=== PATIENT | male | born 1960 | race Caucasian/White ===

== ENCOUNTER 2022-06-27 14:19 | Outpatient (CLI) | payer OTHER, SELFPAY ==
--- NOTE | 2022-06-27 | DI.RAD_ITS ---
Exam(s) XR CERVICAL SPINE COMP 4-5V EXAM: XR CERVICAL SPINE COMP 4-5V CLINICAL HISTORY: SEGMENTAL AND SOMATIC DYSFUNCTION OF CERVICAL REGION, INJURY. TECHNIQUE: 2D digital imaging was performed. COMPARISON: No exams were available for comparison FINDINGS: BONES: No fracture or destructive lesion. DISKS: C2-3 disc space is maintained. There are facet degenerative changes. This C3-4 disc shows mi ld narrowing and small endplate osteophytes. Mild bilateral neural foraminal narrowing. The C 4 5 t hrough C6-7 disc spaces shows severe narrowing. There are endplate osteophytes. Facet degenerative changes are present as well, greater on the right side. There is multilevel bilateral neural foramin al narrowing. ALIGNMENT: Straightening of the normal cervical doses secondary to degenerative changes.. The odonto id and atlantoaxial articulations are normal. SOFT TISSUE: Normal. The lung apices are clear. IMPRESSION: Multilevel degenerative disc changes and facet degenerative changes causing bilateral neural foramina l narrowing. DATA REPOSITORY: RADIATION DOSE DELIVERED:
== END 2022-06-27 14:39 ==
PROVIDERS: Visit Provider Chiropractor
DX: M50.31 Other cervical disc degeneration, high cervical region (principal); M50.321 Other cervical disc degeneration at C4-C5 level; M50.322 Other cervical disc degeneration at C5-C6 level; M50.323 Other cervical disc degeneration at C6-C7 level; M47.812 Spondylosis without myelopathy or radiculopathy, cervical region; M99.01 Segmental and somatic dysfunction of cervical region
CPT/HCPCS: 72050

== ENCOUNTER 2024-01-04 04:57 | Observation (INO) | payer MEDICAID, SELFPAY ==
[2024-01-04] VITALS (57 sets, daily range): BP systolic 99–132; BP diastolic 67–111; PULSE 64–96; RESP 11–29; TEMP 36.1–37; O2SAT 91–97
--- NOTE | 2024-01-04 | ETT_ITS ---
APPROVED REPORT Exam: Exercise Treadmill Patient Location: In-Patient Room/Bed: 214 Stress Nurse: Blake Elliott RN and Suzan Wayne RN Ordering Provider:STEVIE JHA, Contact Number: [phone] BMI: 24.96 Baseline Rhythm: Sinus Rhythm. Indications: Chest Pain. Medical History Medical History: Coronary Artery Calcifications; Current Smoker. Cardiac Medications: Naproxen. Allergies: None. Cardiac Risk Factors: CVD; Current Smoker. Previous Cardiac Procedures: None. Pretest Chest Pain Characteristics: None. Exercise History: Indeterminate. Physical Disabilities: None. Lung Sounds: Clear bilaterally throughout, anterior and posterior. Heart Sounds: S1 and S2 auscultated. Stress Test Details Test: Exercise stress testing was performed using a Ubaldo protocol. Rest Stress HR Resting HR Supine: 67 bpm Max Heart Rate (APMHR): 159 bpm Resting HR Standin bpm Target HR (85% APMHR): 135 bpm Max HR Achieved: 138 bpm % of APMHR: 87 Recovery HR: 76 bpm HR response to stress: Normal HR response to stress. BP Resting BP Supine: 136/88 mmHg Resting BP Standin/84 mmHg Max BP: 205/82 mmHg Recovery BP: 122/72 mmHg BP response to stress: Normal blood pressure response to stress. ECG Resting ECG: Sinus Rhythm. Ectopy: None. Stress ECG: Sinus Tachycardia. ST Change: No significant ST segment changes noted. Arrhythmia: Occasional PAC's. Recovery ECG: Sinus Rhythm. Recovery ST Change: No significant ST segment changes noted. Recovery Arrhythmia: Occasional PAC's; Rare PVC. Clinical Reason for Termination: Target HR Achieved, Fatigue, Dyspnea. Stress Symptoms: Generalized Fatigue; Severe Shortness of Breath. Exercise duration: 02 min08 sec Highest Stage Reached: Stage 1: 1.7 mph at 10% grade. Exercise capacity: 4.64 METs Angina Score: None Rate Pressure Product: 05912 Stress ECG Conclusion 1. Resting electrocardiogram showed first-degree AV block 2. Patient exercised on the Ubaldo protocol completed a workload of 4.64 METS 3. Normal heart rate and blood pressure response to exercise. Patient achieved 87% of predicted hear t rate for age 4. There was no electrocardiographic evidence of myocardial ischemia 5. Atrial premature beats were noted Stress Test Summary STAGE Time (mins) Speed (mph) Grade (%) HR BP SpO2 SYMPTOMS METS Supine 67 136/88 96 Standing 76 124/84 1 3 1.7 10 138 Pt. c/o severe shortness of breath and fatigue. 4.5 1 min recovery 94 205/82 95 Pt. c/o moderate shortness of breath. 3 min recovery 67 150/70 Pt. c/o mild shortness of breath. 6 min recovery 76 122/72 96 Pt. states that all symptoms have resolved. Pt. was brought from the stress lab back up to Med/Surg following the ETT. Pt. was conversing pleasan tly with nursing staff in no apparent distress.
--- NOTE | 2024-01-04 04:45 | RT.EKG_ITS ---
APPROVED REPORT Exam: Resting ECG Reason for Exam: sob Patient Location: E HR:84 bpm ECG Measurements Heart Rate 84 AXIS DE 188 P 76 QRSd 100 QRS 92 QT 380 T 88 QTc 449 Conclusion Sinus rhythm...normal P axis, V-rate 60- 99 Right axis deviation...QRS axis ( 91,269) NSR Normal Interval Borderline Right [place] No ST changes.
--- NOTE | 2024-01-04 04:58 | W.ED.GENAD ---
Discharge Plan Discharge Details Chief Complaint: SOB/SuddenOnset Clinical Impression: Dyspnea, Chest tightness Primary Care Provider: Unknown,Unknown ED Provider: Romario Christina Moran Meds and New Rx's Prescriptions: No Action naproxen 500 MG tablet,delayed release (DR/EC) 500 mg PO BID Qty: 60 0RF HPI General Mode of arrival: ambulatory. Date/Time Provider Initiated Documentation: 01/04/24 04:58. Limitations to Documentation: no limitations. Information obtained by: patient. HPI Narrative: Patient presents to ED with complaint of shortness of breath. Patient states that he was fine when he went to bed last night. He has not been experiencing any fever, cough, URI symptoms, allergy symptoms. He is a smoker. He denies any other medical problems and does not take any home medications. Woke up about 3 AM with labored breathing and shortness of breath. Denies having chest pain but does admit to chest tightness. Denies any back pain. Denies any sweats, lightheadedness, nausea, vomiting, abdominal pain. Denies any leg pain or swelling. Has never happened previously. Related Data Home Medications Medication Instructions Recorded Confirmed naproxen 500 mg tablet,delayed 500 mg PO BID ##60 01/02/14 01/04/24 release Previous Rx's Medication Instructions Recorded naproxen 500 mg tablet,delayed 500 mg PO BID ##60 01/02/14 release Allergies Allergy/AdvReac Type Severity Reaction Status Date / Time No Known Allergies Allergy Unverified 01/04/24 05:17 Review of Systems Narrative: Per HPI Exam Narrative Exam Narrative: Const: WDWN male in NAD. VS per triage. HEENT: NC/AT. Normal facial exam. Neck: Supple. Trachea midline. Lungs: Increased work of breathing but not in distress, lungs are clear. Cor: RRR without murmur. Good radial pulses. GI: Soft/ND/NT. Neuro: A+O x 3. Normal speech, mentation, gait. Cranial nerves II - XII grossly intact. No gross motor or sensory deficit. Ext: No C/C/E. Medical Decision Making Patient presenting to ED after waking up with shortness of breath. This occurred about 2 hours ago and has been persistent. Complains of chest tightness but not pain. An EKG is sinus rhythm with borderline right axis no acute ST changes noted. He is a smoker but his saturations are good and his lungs are clear. He does have increased work of breathing. Besides age and smoking no apparent cardiac risk factors. Will give aspirin and nitro to see if any improvement. Laboratory studies ordered. Because of his acute onset as well as his work of breathing and borderline right axis I will obtain CTA to rule out PE. Patient's symptoms improved with 1 sublingual nitroglycerin. His chest tightness resolved and his shortness of breath improved. Currently does not have increased work of breathing. Initial laboratory workup is reassuring. His initial troponin is negative. CBC is normal. Kidney function normal. Magnesium a little low at 1.7. CTA of the chest is negative for dissection or PE. He does have coronary artery calcifications. Repeat troponin is due at 8 AM. If this is negative he needs stress testing prior to discharge and will likely need chest pain observation admission. I have discussed this with the patient who understands and is in agreement. Patient signed out to oncoming ED physician pending his 8 AM troponin result. Lab Data Lab results reviewed: Yes I reviewed the patient's lab results. Lab results narrative: see [facility] ECG Data Attestation: I personally reviewed and interpreted this ECG (s) as follows: Prior ECG tracings: not available for review Interpretation: see EKG/[facility] Critical Care Time Critical Care Time Critical Care Time: Yes Total Critical Care Time: 45 Attestation: Upon my evaluation, this patient had a high probability of imminent or life-threatening deterioration, which required my direct attention, intervention, and personal management. I have personally provided 45 minutes of critical care time exclusive of time spent on separately billable procedures. Time includes monitoring for potential decompensation, ordering of tests and medications, review of laboratory and radiology results, discussion with consultants and documentation . Interventions were performed as documented above in procedures. [facility] All Active Problems (Updated 01/04/24 @ 06:39 by Romario Christina MD) Chest tightness (Acute) Dyspnea (Acute) Medical History No significant past medical history Surgical History No significant past surgical history Social History Smoking/Tobacco Use Status: Current every day Tobacco Type: cigars Per week: 40 Tobacco: How many years used: 30 Smoking risk assessment performed?: Yes Alcohol Intake: never Drug use: Occasionally Substance use type: marijuana Housing: apartment Do you feel safe at home: Yes Do you feel safe in your relationship?: Yes
--- NOTE | 2024-01-04 05:00 | DI.CT_ITS ---
Exam(s) CT CHEST PE CTA EXAM: CT CHEST PE CTA CLINICAL HISTORY: CP/SOB. TECHNIQUE: Imaging Protocol: Axial CT angiography was performed with multi-slice acquisition and mu lti-planar and/or 3D reconstructions. CONTRAST MATERIAL: Intravenous: Omnipaque 350 contrast volume:100 mL COMPARISON: No exams were available for comparison FINDINGS: Tracheobronchial tree: Patent where visualized. Pulmonary parenchyma: No consolidation or dominant measurable mass. Moderately severe centrilobular e mphysematous changes are present. There is a 3 mm nodule adjacent to the right major fissure in the right middle lobe (series 7, image 414). Pulmonary Arteries: No evidence of filling defect to suggest pulmonary emboli. Mediastinum and Taylor: No dominant adenopathy or fluid collection. The esophagus is unremarkable. Visualized thyroid gland: Unremarkable. Pleura: No effusion or pneumothorax. Heart: The heart is not dilated. No coronary artery calcifications are seen. No pericardial effusion. Aorta: Thoracic aorta non-dilated. No evidence of dissection. Atherosclerotic calcification is presen t. Upper abdomen: There is a large left parapelvic cyst. No follow-up is recommended. Bilateral adren al nodularity is present which may represent adrenal adenomas. Follow-up as clinically appropriate. Soft tissues: Unremarkable. Bones: Within normal limits for the patient's age. IMPRESSION: 1. No evidence of pulmonary embolism, thoracic aortic dissection or aneurysm. 2. 3 mm right middle lobe pulmonary nodule. Solid nodules smaller than 6 mm do not require routine follow-up in all patients with high clinical r isk; however, some nodules smaller than 6 mm with suspicious morphology, upper lobe location, or both may warrant follow-up at 12 months (grade 2A; weak recommendation, high-quality evidence). (Eduardo et al., 2017) Single solid noncalcified nodules. ???Solid nodules smaller than 6 mm (those 5 mm or smaller) do not require routine follow-up in patients at low risk (grade 1C; strong recommendation, low- or very-low- quality evidence). (Eduardo et al., 2017) RADIATION DOSE DELIVERED: 330.49mGy.cm Total DLP DATA REPOSITORY: All CT scans at this facility are submitted to the National Radiology Data Registry (NRDR) Dose Index Registry (DIR) with the [employer] (ACR). RADIATION OPTIMIZATION: All CT scans at this facility use at least one of these dose optimization te chniques: automated exposure control; mA and/or kV adjustment per patient size (includes targeted exa ms where dose is matched to clinical indication); or iterative reconstruction.
[2024-01-04] MEDS: Aspirin 81 MG CHEW 324 MG CH (05:13)
[2024-01-04] MEDS: nitroGLYcerin 0.4 MG TAB SL (05:13)
[2024-01-04 05:16] LABS: Abs Immature Grans 0.04 10^3/uL (0.0-0.06); Absolute Basophil Count 0.13 10^3/uL (0.0-0.2); Absolute Eosinophil Count 0.43 10^3/uL (0.0-0.7); Absolute Monocyte Count 0.71 10^3/uL (0.1-0.8); Absolute Neutrophil Count 5.23 10^3/uL (1.2-6.7); Basophils % 1.4 %; Eosinophils % 4.5 %; HCT 47.9 % (40.0-50.0); HGB 16.4 g/dL (13.5-17.5); Immature Grans % 0.4 %; Lymphocytes % 31.4 %; MCH 30.8 pg (27.0-33.0); MCHC 34.2 % (32.0-36.0); MCV 90 fL (80-95); MPV 9.6 fL (8.0-11.0); Monocytes % 7.4 %; Neutrophils % 54.9 %; Platelet Count 288 10^3/uL (130-400); RBC 5.33 10^6/uL (4.36-5.78); RDW 13.4 % (11.8-14.1); RDW-SD 44.7 fL; WBC 9.54 10^3/uL (4.4-10.8)
[2024-01-04 05:34] LABS: ALT 18 U/L (16-63); AST 16 U/L (15-37); Albumin 4.1 g/dL (3.4-5.0); Alkaline Phosphatase 95 U/L (46-116); Anion Gap 11.6 mmol/L (3-11); BUN 18 mg/dL (7-18); Bilirubin, Total 0.42 mg/dL (0.2-1.0); CO2 26.4 mmol/L (21.0-32.0); Calcium 9.9 mg/dL (8.5-10.1); Chloride 104 mmol/L (98-107); Estimated GFR 85.63 (mL/min/1.73m2); Glucose 124 mg/dL (74-106); Magnesium 1.7 mg/dL (1.8-2.4); Potassium 4.1 mmol/L (3.5-5.1); Sodium 142 mmol/L (136-145); Troponin I < 50 ng/L (< or =60)
[2024-01-04 05:38] LABS: NT-proBNP 29 pg/mL (<300)
[2024-01-04] MEDS: Normal Saline - Diluent 50 ML VIAL IJ (05:42)
[2024-01-04] MEDS: Omnipaque 350 MG/ML 100 ML BTL IJ (05:42)
--- NOTE | 2024-01-04 06:15 | DI.VRAD_ITS ---
PROCEDURE INFORMATION: Exam: CTA Chest With Contrast Exam date and time: 01/04/2024 5:33 AM Age: 63 years old Clinical indication: Pain; Shortness of breath; Chest pressure; Additional info: Cp/sob TECHNIQUE: Imaging protocol: Computed tomographic angiography of the chest with contrast. Exam focused on the arteries. 3D rendering (Not supervised by radiologist): MIP and/or 3D reconstructed images were created by the technologist. Contrast material: OMNI 350; Contrast volume: 100 ml; Contrast route: INTRAVENOUS (IV); COMPARISON: No relevant prior studies are available for comparison. FINDINGS: Pulmonary arteries: No pulmonary embolus is appreciated. Aorta: No thoracic aortic aneurysm seen. Arterial calcifications. Lungs: Emphysematous changes in the lungs. Pleural spaces: No pleural effusion. Heart: No pericardial effusion. Coronary arteries: Coronary artery calcifications. Lymph nodes: Nonspecific mediastinal lymph nodes. Gallbladder and biliary ducts: Contracted gallbladder. Adrenal glands: Bilateral nodular adrenal thickening. Kidneys and ureters: Dilated left extrarenal pelvis, incompletely imaged. Bones/joints: No acute pertinent abnormality seen. Soft tissues: No acute pertinent abnormality seen. IMPRESSION: 1. No pulmonary embolus is appreciated. 2. Findings as above. Dictated and Authenticated by: Annie Arteaga MD. Ordering:ALEXIS Doss MD
[2024-01-04 08:30] LABS: Troponin I < 50 ng/L (< or =60)
--- NOTE | 2024-01-04 10:44 | NUR.NOTE ---
Nursing Note: arrived to floor alert and orientated, denies chest pain, states he never had chest pain just shortness of breath, denies shortness of breath at this time. State he did have an episode of anxiety in 2008 and is currently out on workers comp for rotator cuff injury to right shoulder and neck injury. hx of bilateral shoulder surgeries related to rotater cuff. see flow sheet for vitals
[2024-01-04 12:20] LABS: Troponin I < 50 ng/L (< or =60)
--- NOTE | 2024-01-04 14:27 | HPE_ITS ---
Date of service: 01/04/24 Time of Service: 09:00 Assessment and Plan Assessment and plan (1) Chest tightness: Status: Acute Assessment and plan: Resolved in ED No further chest tightness Troponin flat patient would like to go home, but will wait for stress test. Stress test pending (2) Tobacco abuse: Status: Acute Assessment and plan: Quit smoking Care mgrs to provide resources. History of Present Illness History of Present Illness Chief Complaint: Chest pain Narrative: * Chief Complaint: Patient presented to the ED with sudden onset of shortness of breath 2 hours prior to arrival, accompanied by chest tightness. * Symptoms: Persistent shortness of breath, chest tightness (no pain), increased work of breathing. * Initial Assessment: * EKG showed sinus rhythm with borderline right axis, no acute ST changes. * Good oxygen saturations, clear lungs. * Risk Factors: Age, smoking (no other apparent cardiac risk factors). * Management: * Administered aspirin and nitroglycerin; symptoms improved with nitroglycerin. * Improvement: Chest tightness resolved, shortness of breath improved, no increased work of breathing. * Laboratory Findings: * Initial troponin negative. Second negative, third pending * CBC normal. * Normal kidney function. * Low magnesium (1.7). * Imaging: CTA negative for dissection or pulmonary embolism. Emphysematous changes in the lungs. * Cardiovascular Findings: Coronary artery calcifications noted. Placed on observation status on the medical floor for further testing and treatement Review of Systems All systems reviewed & are unremarkable except as noted in HPI and below PFSH All Active Problems (Updated 01/04/24 @ 19:25 by Alyssa Alexis NP) Tobacco abuse (Acute) Chest tightness (Acute) Dyspnea (Acute) Medical History No significant past medical history Surgical History No significant past surgical history Social History Smoking/Tobacco Use Status: Current every day Tobacco Type: cigars Per week: 40 Tobacco: How many years used: 30 Smoking risk assessment performed?: Yes Alcohol Intake: never Drug use: Occasionally Substance use type: marijuana Housing: apartment Do you feel safe at home: Yes Do you feel safe in your relationship?: Yes Meds Allergies and Home Medications Allergies Allergy/AdvReac Type Severity Reaction Status Date / Time No Known Allergies Allergy Unverified 01/04/24 05:17 Home Medications Medication Instructions Recorded Confirmed Type naproxen 500 mg tablet,delayed 500 mg PO BID ##60 01/02/14 01/04/24 Rx release Exam Narrative Exam Narrative: Const: Awake, alert, pleasant HEENT: NC/AT. Normal facial exam. Neck: Supple. Trachea midline. Lungs: No increased work of breathing, lungs are clear. Cor: RRR without murmur. Good radial pulses. GI: Soft/ND/NT. Neuro: A+O x 3. Normal speech, mentation, gait. Cranial nerves II - XII grossly intact. No gross motor or sensory deficit. Ext: No C/C/E. Results Labs 01/04/24 05:00 01/04/24 05:00 Labs: Laboratory Results - last 24 hr 01/04/24 01/04/24 01/04/24 05:00 08:07 11:50 WBC 9.54 RBC 5.33 Hgb 16.4 Hct 47.9 MCV 90 MCH 30.8 MCHC 34.2 RDW 13.4 Plt Count 288 MPV 9.6 Immature Gran % 0.4 Neutrophils % 54.9 Lymphocytes % 31.4 Monocytes % 7.4 Eosinophils % 4.5 Basophils % 1.4 Nucleated RBC % 0.0 Absolute Neutrophils 5.23 Absolute Lymphocytes 3.00 Absolute Monocytes 0.71 Absolute Eosinophils 0.43 Absolute Basophils 0.13 Sodium 142 Potassium 4.1 Chloride 104 Carbon Dioxide 26.4 Anion Gap 11.6 H BUN 18 Creatinine 1.0 Est GFR (CKD-EPI 2020) 85.63 Glucose 124 H Calcium 9.9 Magnesium 1.7 L Total Bilirubin 0.42 AST 16 ALT 18 Alkaline Phosphatase 95 Troponin I < 50 < 50 < 50 NT-Pro-B Natriuret Pep 29 Total Protein 8.0 Albumin 4.1 Last Vital Signs Temp 36.6 C 01/04/24 10:48 Pulse 70 01/04/24 10:48 Resp 20 01/04/24 10:48 BP 117/78 01/04/24 10:48 Pulse Ox 97 01/04/24 10:48 Time Spent Time spent with Patient: 40-54 minutes Time was spent: preparing to see the patient(eg.review tests), ordering medications,tests, procedures, referring, communicating with other health rn long term care, indepentently interpreting results, counseling the patient and care coordination
[2024-01-04] MEDS: Magnesium Chloride 64 MG TABCR PO (14:30)
--- NOTE | 2024-01-04 16:02 | DSE_ITS ---
Date of service: 01/04/24 Time of Service: 16:02 DS: Diagnosis Discharge Diagnosis (1) Chest tightness: Status: Acute Discharge Plan Disposition Patient Disposition: Home Condition: Improving Discharge Details Reason For Visit: chest pain Admit Date/Time: 01/04/24 09:23 Admit Provider: Konrad Lomeli Attending Provider: Konrad Lomeli Primary Care Provider: Unknown,Unknown Hospital Course Hospital Course: * Chief Complaint: Patient presented to the ED with sudden onset of shortness of breath 2 hours prior to arrival, accompanied by chest tightness. * Symptoms: Persistent shortness of breath, chest tightness (no pain), increased work of breathing. * Initial Assessment: * EKG showed sinus rhythm with borderline right axis, no acute ST changes. * Good oxygen saturations, clear lungs. * Risk Factors: Age, smoking (no other apparent cardiac risk factors). * Management: * Administered aspirin and nitroglycerin; symptoms improved with nitroglycerin. * Improvement: Chest tightness resolved, shortness of breath improved, no increased work of breathing. * Laboratory Findings: * Initial troponin negative. Second negative, third pending * CBC normal. * Normal kidney function. * Low magnesium (1.7). * Imaging: CTA negative for dissection or pulmonary embolism. Emphysematous changes in the lungs. * Cardiovascular Findings: Coronary artery calcifications noted. Stress test negative for ishemia Home Meds and New Rx's Prescriptions: No Action naproxen 500 MG tablet,delayed release (DR/EC) 500 mg PO BID Qty: 60 0RF Discharge Instructions Instructions: Quitting smoking, Chest pain - Discharge instructions Additional Instructions: Follow up with your PCP Your stress test did not show any ischemia STOP smoking Stand Alone Forms: Nursing Discharge Form Referrals: Darryn Whitlock DO [OSTEOPATHIC DOCTOR] - 01/12/24 10:00 am (1-2 weeks post hospitalization for chest pain) Activity:: Activity as Tolerated Equipment/Supplies:: No Equipment Needed Diet:: As Tolerated Discharge Orders Discharge Orders: Discharge Order (Routine); Ordered 01/04/24 Ordered By: Alyssa Alexis Discharge Data Discharge Date/Time-TO BE ENTERED AT DEPARTURE: 01/04/24 16:47 DS: Summary Time Spent with Patient providing and/or coordinating discharge services: Less than 30 minutes Status at Discharge Functional status at discharge: independent ambulation Overall status at discharge: patient is back to baseline Mental Status: mental status grossly normal Speech and Movement: speech and movement normal Mood: congruent mood Affect: normal affect Quality:SDOH Health Related Social Needs: No Data to Display Exam Psych Mental Status: mental status grossly normal Speech and Movement: speech and movement normal Mood: congruent mood Affect: normal affect DS: Data Vitals/I&O Vitals and I&O: Vital Signs Temperature 37 C 01/04/24 15:36 Temperature Source Tympanic 01/04/24 15:36 Pulse 77 01/04/24 15:36 Pulse Rhythm Regular 01/04/24 12:18 Pulse 76 01/04/24 10:10 Respiratory Rate 17 01/04/24 15:36 Respiratory Effort Normal 01/04/24 12:18 Respiratory Depth Normal 01/04/24 12:18 Respiratory Pattern Normal 01/04/24 12:18 Blood Pressure 127/83 01/04/24 15:36 Blood Pressure Mean 87 01/04/24 10:01 Blood Pressure Position Sitting 01/04/24 08:23 Pulse Oximetry 95 01/04/24 15:36 Oxygen Delivery Method Room Air 01/04/24 15:36 Oxygen Flow Rate 0 01/04/24 15:36 Pain Level 0 01/04/24 12:18 Comment see flow sheet 01/04/24 12:18 Intake & Output 01/03/24 01/04/24 01/04/24 23:59 11:59 23:59 Weight 79.3 kg 81.647 kg Other: Voiding Methods Toilet Data Completed and Pending Labs on day of discharge: Labs from last 24 hours 01/04/24 01/04/24 01/04/24 11:50 08:07 05:00 WBC 9.54 RBC 5.33 Hgb 16.4 Hct 47.9 MCV 90 MCH 30.8 MCHC 34.2 RDW 13.4 Plt Count 288 MPV 9.6 Immature Gran % 0.4 Neutrophils % 54.9 Lymphocytes % 31.4 Monocytes % 7.4 Eosinophils % 4.5 Basophils % 1.4 Nucleated RBC % 0.0 Absolute Neutrophils 5.23 Absolute Lymphocytes 3.00 Absolute Monocytes 0.71 Absolute Eosinophils 0.43 Absolute Basophils 0.13 Sodium 142 Potassium 4.1 Chloride 104 Carbon Dioxide 26.4 Anion Gap 11.6 H BUN 18 Creatinine 1.0 Est GFR (CKD-EPI 2020) 85.63 Glucose 124 H Calcium 9.9 Magnesium 1.7 L Total Bilirubin 0.42 AST 16 ALT 18 Alkaline Phosphatase 95 Troponin I < 50 < 50 < 50 NT-Pro-B Natriuret Pep 29 Total Protein 8.0 Albumin 4.1 PFSH All Active Problems (Updated 01/04/24 @ 19:25 by Alyssa Alexis NP) Tobacco abuse (Acute) Chest tightness (Acute) Dyspnea (Acute) Medical History No significant past medical history Surgical History No significant past surgical history Social History Smoking/Tobacco Use Status: Current every day Tobacco Type: cigars Per week: 40 Tobacco: How many years used: 30 Smoking risk assessment performed?: Yes Alcohol Intake: never Drug use: Occasionally Substance use type: marijuana Housing: apartment Do you feel safe at home: Yes Do you feel safe in your relationship?: Yes Time Spent with Patient Time Spent with Patient: 45-69 minutes Time was spent: preparing to see the patient(eg.review tests), ordering medications,tests, procedures, referring, communicating with other health care coordinator, indepentently interpreting results, counseling the patient and care coordination
== END 2024-01-04 16:47 | disposition home or self-care (01) | DRG 313 ==
LOC: ER 08:27 → MS 14:21
PROVIDERS: Emergency Medicine; Nurse Practitioner Family; Admitting Provider Family Medicine; Emergency Provider Student in an Organized Health Care Education/Training Program; Visit Provider Family Medicine
DX: R07.89 Other chest pain (principal); F17.210 Nicotine dependence, cigarettes, uncomplicated; R06.02 Shortness of breath
CPT/HCPCS: 00123; 36415; 71275; 80053; 93005; 99291; 83735; 83880; 84484; 85025; 93010; 93017; 99234; G0378; J3490

== ENCOUNTER 2025-03-28 09:32 | Emergency (ER) | payer MEDICAID, SELFPAY ==
[2025-03-28 09:44] VITALS: BP 147/91; PULSE 91; RESP 20; TEMP 36.3; O2SAT 96
--- NOTE | 2025-03-28 10:00 | DI.CT_ITS ---
Exam(s) CT CHEST PE ABD PELVIS W EXAM: CT CHEST PE ABD PELVIS W CLINICAL HISTORY: Hemoptysis, tender umbilical hernia, abdominal zain. TECHNIQUE: Imaging Protocol: Axial CT angiography was performed with multi- slice acquisition and multi-planar and/or 3D reconstructions. Computer aided detection (CAD) was utilized. CONTRAST MATERIAL: Intravenous: Omnipaque 350contrast volume:100 mL COMPARISON: CT CT CHEST PE CTA from 01/04/2024 FINDINGS: The lung apices were not included on this examination. CHEST: Tracheobronchial tree: Patent where visualized. No evidence of bronchiectasis. Pulmonary parenchyma: No consolidation or dominant measurable mass. Moderate emphysematous changes are present in the lungs. Pulmonary Arteries: No evidence of filling defect to suggest pulmonary emboli. Mediastinum and Taylor: No dominant adenopathy or fluid collection. The esophagus is unremarkable. Visualized thyroid gland: Unremarkable. Pleura: No effusion or pneumothorax. Heart: The heart is not dilated. Mild coronary artery calcification is present. No pericardial effusion. Aorta: Thoracic aorta non-dilated. Atherosclerotic calcification is present. Bones: Within normal limits for the patient's age. Soft tissues: Mild gynecomastia. ABDOMEN: Liver: Normal density. No measurable mass. Portal, Superior Mesenteric, and Splenic Veins: Unremarkable. Gallbladder and Biliary Tract: No radiodense calculus or dilation. Pancreas: Normal density, no abnormal calcifications or inflammatory process. Spleen: Normal. Adrenals: There is stable bilateral adrenal nodules likely reflecting adenomas. 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 There are left renal calculi. There is delayed enhancement of the left kidney. There is dilatation of the left renal pelvis. The left ureter is of normal caliber. The findings are suspicious for obstruction at the UPJ. No masses seen. Abdominal Aorta: Abdominal portion non-dilated. Atherosclerotic calcification is present. Bowel: There is diverticulosis of the colon without evidence of acute diverticulitis. There is no bowel obstruction or wall thickening. The stomach is incompletely distended limiting evaluation. Appendix is unremarkable. Peritoneal Cavity: No ascites, collection or mesenteric inflammatory response. No free air. Lymph Nodes: Within normal limits. Bones: Within normal limits for the patient's age. Soft Tissues: There is a fat containing umbilical hernia. PELVIS: Bladder: Symmetric distention, no gross wall thickening. Reproductive Organs: Unremarkable as visualized. Lymph Nodes: Within normal limits. Bones: Within normal limits. IMPRESSION: 1. Dilatation of the left renal collecting system to the level of the UPJ without obvious obstructing cause. UPJ obstruction or mass should be considered. Urology consult is recommended. 2. Left nephrolithiasis. 3. No evidence of a pulmonary embolism or thoracic aortic aneurysm. 4. No acute pulmonary process. RADIATION DOSE DELIVERED: 303.86mGy.cm Total DLP DATA REPOSITORY: All CT scans at this facility are submitted to the National Radiology Data Registry (NRDR) Dose Index Registry (DIR) with the [employer] (ACR). RADIATION OPTIMIZATION: All CT scans at this facility use at least one of these dose optimization techniques: automated exposure control; mA and/or kV adjustment per patient size (includes targeted exams where dose is matched to clinical indication); or iterative reconstruction.
[2025-03-28 10:26] LABS: Abs Immature Grans 0.02 10^3/uL (0.0-0.06); HCT 45.6 % (40.0-50.0); HGB 15.6 g/dL (13.5-17.5); Immature Grans % 0.3 %; MCH 30.2 pg (27.0-33.0); MCHC 34.2 % (32.0-36.0); MCV 88 fL (80-95); MPV 10.2 fL (8.0-11.0); Platelet Count 280 10^3/uL (130-400); RBC 5.16 10^6/uL (4.36-5.78); RDW 13.4 % (11.8-14.1); RDW-SD 43.8 fL; WBC 7.33 10^3/uL (4.4-10.8)
[2025-03-28] MEDS: Normal Saline 1,000 ML 1000 ML IV (10:30)
[2025-03-28] MEDS: Ketorolac 15 MG/ML VIAL IVP (10:32)
[2025-03-28] MEDS: ACETAMINOPHEN 1,000 MG/100 ML BAG 400 MG IVPB (10:33)
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
[2025-03-28 10:46] LABS: ALT 18 U/L (16-63); AST 35 U/L (15-37); Albumin 4.1 g/dL (3.4-5.0); Alkaline Phosphatase 102 U/L (46-116); Anion Gap 11.1 mmol/L (3-11); BUN 18 mg/dL (7-18); Bilirubin, Total 0.4 mg/dL (0.2-1.0); CO2 22.9 mmol/L (21.0-32.0); Calcium 10.1 mg/dL (8.5-10.1); Chloride 105 mmol/L (98-107); Estimated GFR 100.06 (mL/min/1.73m2); Glucose 110 mg/dL (74-106); Lipase 25 U/L (<78); Potassium 4.2 mmol/L (3.5-5.1); Sodium 139 mmol/L (136-145); Total Protein 7.9 g/dL (6.4-8.2)
[2025-03-28 11:00] LABS: Glucose Negative (Negative)
[2025-03-28] MEDS: Omnipaque 350 MG/ML 500 ML BTL-Imaging package IJ (11:34)
[2025-03-28] MEDS: Normal Saline - Diluent 50 ML VIAL IJ (11:36)
[2025-03-28] MEDS: Ondansetron 4 MG/2 ML VIAL (11:39)
[2025-03-28 13:55] VITALS: BP 141/81; PULSE 65; RESP 16; TEMP 36.7; O2SAT 99
== END 2025-03-28 13:58 | disposition home or self-care (01) ==
PROVIDERS: Emergency Provider Student in an Organized Health Care Education/Training Program
DX: K42.9 Umbilical hernia without obstruction or gangrene (principal); N13.9 Obstructive and reflux uropathy, unspecified
CPT/HCPCS: 36415; 71275; 74177; 80053; 83690; 96361; 96365; 96375; 99285; 81003; 83605; 85025; 99284; J0131; J1885; J2405

== ENCOUNTER 2025-04-16 02:01 | Outpatient (CLI) | payer MEDICAID, SELFPAY ==
--- NOTE | 2025-04-16 05:45 | DI.NM_ITS ---
Exam(s) NM MAG 3 RENOGRAM W LASIX CLINICAL HISTORY: check function,upj obstruction,n13.5. COMPARISON: CT CT CHEST PE CTA from 01/04/[address] CHEST PE ABD PELVIS W from 03/28/2025 EXAMINATION: Dose: 9.4 mCi Tc-99m MAG3 Images: Immediately for 1 minute followed by dynamic for 45 minutes. Thirty- ninemg Lasix was administered after peak uptake in the renal cortex at approximately 12 min. FINDINGS: Sequential imaging and time activity curves were generated following IV injection of 9.4 millicurie technetium 99 Mag 3. 39 milligram Lasix/furosemide was administered 12 minutes after injection of radiopharmaceutical. FINDINGS: Split renal function favors the left kidney with 59.5 percent uptake in the left kidney and 40.5 percent uptake in the right kidney. Time activity curves: There is no evidence of obstruction pattern on the right side. There is continuous increasing uptake on the left side. This does not diminished following IV Lasix injection. This implies significant obstruction pattern. IMPRESSION: 1. Findings are consistent with obstruction of the left renal collecting system.
[2025-04-16] MEDS: Furosemide 40 MG/4 ML VIAL IVP (09:18)
== END 2025-04-16 02:21 ==
LOC: DI 02:02
PROVIDERS: Visit Provider Urology
DX: N13.5 Crossing vessel and stricture of ureter without hydronephrosis (principal)
CPT/HCPCS: 78708; A9540; J1938

== ENCOUNTER 2025-05-13 10:47 | Day surgery (SDC) | payer MEDICAID, SELFPAY ==
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
--- NOTE | 2025-05-12 14:42 | PDOC.DSDIS_ITS ---
Date of service: 05/13/25 Discharge Plan Disposition Patient Disposition: Home Condition: Good Discharge Details Reason For Visit: umbilical hernia repair Attending Provider: Aram Chambers Primary Care Provider: None,None Home Meds and New Rx's Prescriptions: New tramadol 50 mg tablet 50 mg PO Q8H PRNQty: 9 0RF Rx Instructions: Take 1 tablet by mouth up to every 8 hours if needed for severe pain. Continued umeclidinium-vilanterol [Anoro Ellipta] 62.5-25 mcg/actuation blister with device 1 inh inhalation DAILY Qty: 14 3RF albuterol sulfate [Ventolin HFA] 90 mcg/actuation HFA aerosol inhaler 2 puff inhalation Q6H PRN (Reason: shortness of breath or wheezing) Qty: 6.7 3RF Rx Instructions: use with spacer naproxen sodium [Aleve] 220 mg capsule 220 mg PO BID PRN acetaminophen [Tylenol Extra Strength] 500 mg tablet 500 mg PO ONCE Patient Comments: 1000 mg dose Discharge Instructions Instructions: Abdominal Hernia Repair, Laparoscopic Surgery Additional Instructions: Romario was good seeing you today, and I hope you make a quick and uneventful recovery as you transition home. Things went very smoothly. We are able to reduce the fat from the hernia just as we discussed beforehand, close the defect, and reinforce this with the mesh from below. Expect to get some bru ising over the incisions, and around your bellybutton over the next few days. That is extremely common and nothing to worry about. Ice packs over the incisions and around your bellybutton will help with postoperative pain and swelling. I usually recommend that patients alternate Tylenol and ibuprofen in addition to the prescription medication if you need that. You should be up and walking around a little bit later today and tomorrow. Basic light exercises totally fine. Keep your lifting less than about 10 pounds, and be careful with coughing and sneezing. Obviously, if you can hold off from cigarette smoking that would be in your best interest in the long run. As you will see, you have 3 bandages over your abdomen. 1 is around her bellybutton, and the other 2 are towards the left side. Beginning tomorrow, the fifth, you can remove the bandages on the left side of your abdomen. Please leave the 1 on your bellybutton in place. You can wash all of these incisions with warm soapy water and pat dry. You are welcome to replace the bandages over these incisions if you find that most comfortable. Alternatively, they can be left open to the air. On Monday, the , you can remove the bandage from your bellybutton. You will see that underneath of this is a slimy bit of gauze. This can be removed at that point as well. This can also be washed with soap and water beginning on Monday. If you need anything at all, please do not hesitate to call, otherwise I look forward to seeing you at your postoperative visit. 1. Resume all of your regular medications. 2. Use ice packs over the incisions and bellybutton to help with pain and swelling. 3. Alternate [id number] Tylenol and ibuprofen every 6 hours for the first 2 days. Then use them as needed. Use a prescription for tramadol if you need that for more severe pain.. 4. Leave bandage in place for 24 hours, then remove. 5. Shower with warm soapy water. Pat dry. Use a bandaid if needed to protect your clothing. 6. No soaking or tub baths until I see you in the office. 7. No heavy lifting until I see you in the office. 8.Call the office (or go directly to the emergency room after hours) if you notice any of the following: Develop chills (warm to touch), or if you have a thermometer and your temperature is above 101 Difficulty breathing or difficultly swallowing Persistent vomiting Any bleeding – exceeding one tablespoon 6. Call your physician if the site where your intravenous was started becomes red, swollen, painful, and warm to touch. Stand Alone Forms: Anesthesia Discharge Inst., Jermain Figueroa ([facility]), Portal Information Referrals: Aram Chambers MD [ [facility] STAFF PHYSICIAN, Surgery] - 05/29/25 8:30 am Activity:: no heavy lifting Remove Dressings/Wound Care:: 24 hours Shower/Bathe:: 24 hours Diet:: As Tolerated Discharge Orders Discharge Orders: Discharge Order (Routine); Ordered 05/12/25 Ordered By: Aram Chambers DS: Diagnosis Discharge Diagnosis (1) Hernia, umbilical: Status: Inactive Asessment and Plan: Outpatient postoperative follow-up
[2025-05-13] VITALS (25 sets, daily range): BP systolic 108–150; BP diastolic 64–90; PULSE 63–90; RESP 11–25; TEMP 36–37.1; O2SAT 94–99; BMI 24.5
[2025-05-13] MEDS: Celecoxib 200 MG CAP PO (11:30)
[2025-05-13] MEDS: Acetaminophen 500 MG TAB 1000 MG PO (11:30)
[2025-05-13] MEDS: Gabapentin 300 MG CAP 600 MG PO (11:30)
[2025-05-13] MEDS: Lactated Ringers 1,000 ML 80 ML IV (11:40)
--- NOTE | 2025-05-13 12:23 | ANES.PREOP_ITS ---
General Info Date of Service Date Performed: 05/13/25 Height: 5 ft 10.5 in Weight: 78.6 kg Body Mass Index (BMI): 24.5 Surgical Procedure: Operation Date: 05/13/25 11:25 Proposed Procedure Side Surgeon p Hernia Umbilical Laparoscopic Aram Chambers MD Meds Allergies and Home Medications Allergies Allergy/AdvReac Type Severity Reaction Status Date / Time acetaminophen (From Tylenol) AdvReac Mild Other (See Verified 05/13/25 11:05 Comment) Home Medication Medication Instructions Recorded albuterol sulfate 90 mcg/actuation 2 puff inhalation Q 6H PRN 01/12/24 aerosol inhaler (Ventolin HFA) shortness of breath or wheezing #6.7 grams umeclidinium 62.5 mcg-vilanterol 1 inh inhalation CONCETTA Y #14 ea 01/12/24 25 mcg/actuation powdr for inhalation (Anoro Ellipta) naproxen sodium 220 mg capsule 220 mg PO BID PRN 04/07 (Aleve) acetaminophen 500 mg tablet 500 mg PO ONCE 05/13/25 (Tylenol Extra Strength) Current Visit Medications: Current Medications Generic Name Dose Route Start Last Admin Trade Name Freq PRN Reason Stop Dose Admin Acetaminophen 1,000 mg 05/13/25 06:00 05/13/25 11:30 Acetaminophen 500 Mg Tab PO 05/13/25 23:59 1,000 mg PREOP ANNEMARIE Administration Celecoxib 200 mg 05/13/25 06:00 05/13/25 11:30 Celecoxib 200 Mg Cap PO 05/13/25 23:59 200 mg PREOP ANNEMARIE Administration Gabapentin 600 mg 05/13/25 06:00 05/13/25 11:30 Gabapentin 300 Mg Cap PO 05/13/25 23:59 600 mg PREOP ANNEMARIE Administration Hydromorphone HCl 0.2 mg 05/12/25 14:43 Hydromorphone 2 Mg/Ml Syr IVP 06/11/25 14:42 Q1H PRN PRN Ringer's Solution 1,000 mls @ 80 mls/hr 05/13/25 06:00 05/13/25 11:40 IV 05/13/25 23:59 80 mls/hr INFUSION ANNEMARIE Administration Cefazolin Sodium/Dextrose 2 gm in 50 mls @ 100 mls/hr 05/13/25 06:00 Ancef Duplex IVPB 05/13/25 23:59 PREOP ANNEMARIE IV Miscellaneous Supplies 1 each 05/13/25 06:00 Iv Access IV 05/13/25 23:59 DIRECTED ANNEMARIE Sodium Chloride 0 ml 05/13/25 06:00 Normal Saline Flush 10 Ml Syr IV 05/13/25 23:59 PRN PRN Sodium Chloride 0 ml 05/13/25 06:00 Normal Saline 10 Ml Vial IJ 05/13/25 23:59 DIRECTED PRN Sterile Water 0 ml 05/13/25 06:00 Water,Injection,Sterile 10 Ml Vial IJ 05/13/25 23:59 DIRECTED PRN Tramadol HCl 50 mg 05/12/25 14:43 Tramadol 50 Mg Tab PO 06/11/25 14:42 Q6H PRN PRN Pain PFSH Active Problems Active Problems: Problem Status Onset Code 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 states mild case No significant past medical history Surgical History Surgical History History of shoulder surgery bilateral, pt states it was a scope No significant past surgical history Tobacco Smoking/Tobacco Use Status: Current every day Tobacco Type: cigars Per week: 56 Second hand exposure: Yes Alcohol Alcohol Intake: never Substance Use Substance use: Occasionally Substance use type: marijuana Details: cigar smoking today. Marijuana: t-300 Vital Signs and Lab Results Vital Signs Most Recent Vital Signs in EMR: Most Recent Vital Signs Temp Pulse Resp BP Pulse Ox 36.4 C L 90 20 150/89 H 96 05/13/25 11:10 05/13/25 11:10 05/13/25 11:10 05/13/25 11:10 05/13/25 11:10 Imaging and Studies Imaging and Studies Study information below may be from another EMR and interpreted by another provider. Please see original notes in EMR for more complete details. EKG Summary: EKG PATIENT NAME: Romario Coombs UNIT #: [id number] ORDERING PROVIDER: Romario Christina M.D. PRIMARY CARE PROVIDER: UNKNOWN,UNKNOWN DATE/TIME OF SERVICE: 01/04/24 0502 : 1960 PERFORMING LOCATION: ER APPROVED REPORT Exam: Resting ECG Reason for Exam: sob Patient Location: E HR:84 bpm ECG Measurements Heart Rate 84 AXIS FL 188 P 76 QRSd 100 QRS 92 QT 380 T88 QTc 449 Conclusion Sinus rhythm...normal P axis, V-rate 60- 99 Right axis deviation...QRS axis ( 91,269) Stress Test Summary: PATIENT NAME: Romario Coombs UNIT #: [id number] ORDERING PROVIDER: Alyssa Alexis NP PRIMARY CARE PROVIDER: UNKNOWN,UNKNOWN DATE/TIME OF SERVICE: 01/04/24 ADMITTING PROVIDER: TANISHA SAMSON MD : 1960 APPROVED REPORT Exam: Exercise Treadmill Patient Location: In-Patient Room/Bed: [address] [place] [address] Nurse: Blake Elliott RN and Suzan Wayne RN Ordering Provider:ALYSSA ALEXIS, Contact Number: [phone] BMI: 24.96 Baseline Rhythm: Sinus Rhythm. Indications: Chest Pain. Medical History Medical History: Coronary Artery Calcifications; Current Smoker. Cardiac Medications: Naproxen. Allergies: None. Cardiac Risk Factors: CVD; Current Smoker. Previous Cardiac Procedures: None. Pretest Chest Pain Characteristics: None. Exercise History: Indeterminate. Physical Disabilities: None. Lung Sounds: Clear bilaterally throughout, anterior and posterior. Heart Sounds: S1 and S2 auscultated. Stress Test Details Test: Exercise stress testing was performed using a Ubaldo protocol. Rest Stress HR Resting HR Supine: 67 bpmMax Heart Rate (APMHR): 159 bpm Resting HR Standin bpmTarget HR (85% APMHR): 135 bpm Max HR Achieved: 138 bpm % of APMHR: 87 Recovery HR: 76 bpm HR response to stress: Normal HR response to stress. BP Resting BP Supine: 136/88 mmHg Resting BP Standin/84 mmHg Max BP: 205/82 mmHg Recovery BP: 122/72 mmHg BP response to stress: Normal blood pressure response to stress. ECG Resting ECG: Sinus Rhythm. Ectopy: None. Stress ECG: Sinus Tachycardia. ST Change: No significant ST segment changes noted. Arrhythmia: Occasional PAC's. Recovery ECG: Sinus Rhythm. Recovery ST Change: No significant ST segment changes noted. Recovery Arrhythmia: Occasional PAC's; Rare PVC. Clinical Reason for Termination: Target HR Achieved, Fatigue, Dyspnea. Stress Symptoms: Generalized Fatigue; Severe Shortness of Breath. Exercise duration: 02 min08 sec Highest Stage Reached: Stage 1: 1.7 mph at 10% grade. Exercise capacity: 4.64 METs Angina Score: None Rate Pressure Product: 49971 Stress ECG Conclusion 1. Resting electrocardiogram showed first-degree AV block 2. Patient exercised on the Ubaldo protocol completed a workload of 4.64 METS 3. Normal heart rate and blood pressure response to exercise. Patient achieved 87% of predicted heart rate for age 4. There was no electrocardiographic evidence of myocardial ischemia 5. Atrial premature beats were noted Stress Test Summary STAGETime (mins)Speed (mph)Grade (%)[id number] Supine Anesthesia Assessment and Plan Anesthesia History Personal History: No History of Anesthesia Complications Family History: No Family History of Anesthesia Complications Exercise Tolerance Exercise Tolerance: Metabolic Equivalents>4 Pertinent Negatives Pertinent Negatives: No Symptoms of GERD and No History of CVA/TIA Cardiac & Pulmonary Exam Cardiac Exam: Normal S1/S2 Heart Sounds Pulmonary Exam: Wheezing Present and Active Cough or Cold (smokers cough ) Implantable Cardiac Device Does patient have a Pacemaker or an ICD?: No Airway Exam Known Difficult Airway: No Mallampati Class: 1 Mouth Opening: Normal (> 3cm) Thyromental Distance: Greater than 3 cm Facial Hair: Full De Souza Neck Range of Motion: Full ROM Neck Circumference: Normal Teeth Condition: Removable Dentures/Plates Upper and Removable Dentures/Plates Lower ASA Classification ASA Score: ASA 3 Emergency Case?: No NPO Status NPO Status: NPO Clears >2 hours, Solids >8 hours Anesthesia Plan Resuscitation Status: Full Code Anesthesia Technique: General Anesthesia Airway Planned: Endotracheal Tube Monitors Used: Standard Monitors
[2025-05-13] MEDS: ceFAZolin 2 GM/50 ML BAG IVPB (12:50)
[2025-05-13] MEDS: Bupivacaine 0.25% Pres-Free W/EPI 30 ML VIAL (13:26)
[2025-05-13] MEDS: Bupivacaine LIPOSOME/PF 133 MG/10 ML VIAL IJ (13:26)
--- NOTE | 2025-05-13 13:49 | ROE_ITS ---
Operative Note Operative Note PRE-OP DIAGNOSIS: Umbilical hernia POST-OP DIAGNOSIS: same PROCEDURE: Laparoscopic umbilical hernia repair with mesh SURGEON: Aram Chambers TECHNICAL SPECIALIST: Felicia Perez ANESTHESIA TYPE: Local By Surgeon, General LMA/ETT and Other (Laparoscopic tap blocks) Refer to Anesthesia Record ESTIMATED BLOOD LOSS: 25 PATHOLOGY: none sent COMPLICATIONS: None Patient was transported to: PACU Patient's condition: stable Implants: [address] hernia mesh Indications: Romario is a 64-year-old male with a symptomatic umbilical hernia Findings: Fat-containing umbilical hernia Procedure Description: Met with Romario in the preoperative area, we reviewed the plan and intent for surgery today. He had the chance to ask any other questions. He was able to provide informed consent. We then moved back to the operating room, he was assisted onto the OR table. General endotracheal anesthesia was initiated in usual fashion. The anterior abdominal wall was then prepped and draped. I anesthetized the skin in the left upper quadrant, made a small skin incision, and establish pneumoperitoneum under a 5 mm optical viewing port. Next, the assistance of the laparoscope, I performed bilateral transversus abdominis blocks. I placed a 12 mm port in the left mid abdomen close to the anterior axillary line. I then turned my attention to the umbilical hernia. It contained greater omentum which was easily reduced. The peritoneum was then incised around the fascial edge, and some preperitoneal fat was reduced from the umbilical hernia defect as all of the hernia sac was excised. The fascial defect was approximately 2 cm left to right by approximately 1.5 cm top to bottom. This dissection was performed using the LigaSure device. It was hemostatic. I anesthetized the skin just cephalad of the umbilicus, made a sm all stab incision. I dissected down through the subcutaneous tissues creating a small subcutaneous pocket. Next, using Anurag Drake wound closure needle, I placed a combination of interrupted and [id number] sutures in a transverse fashion across the hernia defect. The fascia was reapproximated. With the fascial defect closed, I then selected an appropriate mesh. An 11 cm circular mesh seemed most appropriate. I did have to dissected a little bit of the falciform ligament off of the anterior abdominal wall in order to ensure adequate seating of the mesh against the anterior abdominal wall. The Ventralight ST hernia mesh was then advanced into the peritoneal cavity. With the assistance of the You.Do positioning system, this was brought up to the anterior abdominal wall completely covering the closed hernia defect with excellent overlap. Absorbable tacker was then used to affix this in place. There was no worrisome bleeding. The echo tube positioning device was removed according to the tube cleaning operator's instructions. The mesh looked excellent. The 12 mm port was removed from the left mid abdomen, and an 0 Vicryl suture was used to close this in a [id number] fashion. The camera was removed, and the pneumoperitoneum was completely released. 5 mm port in the left upper abdomen was removed, and the skin and subcutaneous tissues were irrigated cleaned prior to closure with absorbable suture. Bandages were applied, Romario was awoken from the anesthetic, extubated, transferred to the recovery unit. Date of Procedure: 05/13/25
--- NOTE | 2025-05-13 14:21 | W.ANESPOSTOP ---
Postoperative Evaluation Date, Time and Location Date Performed: 05/13/25 Time Performed: 14:23 Patient Location: PACU Vital Signs Most Recent Imported Vital Signs: Most Recent Vital Signs Temp Pulse Resp BP Pulse Ox 36.6 C 74 21 142/79 H 97 05/13/25 14:16 05/13/25 14:16 05/13/25 14:16 05/13/25 14:16 05/13/25 14:16 Pain Score Most Recent Pain Score: Most Recent Pain Score Pain Level 2 05/13/25 11:10 Assessment Mental Status: Awake (Alert & Oriented to Patient Baseline) Airway and Respiratory Function: Patent airway with normal (patient baseline) respiratory exam Cardiovascular Function: Hemodynamically Stable Hydration Status: Adequately Hydrated Nausea & Vomiting: No Nausea or Vomiting Pain: Pt. Denies Any Pain Peripheral Nerve Block: Patient did not receive a nerve block
[2025-05-13] MEDS: fentaNYL 100 MCG/2 ML VIAL IVP ×2 (14:28→14:33)
[2025-05-13] MEDS: HYDROmorphone 2 MG/ML SYR IVP ×3 (14:37→14:57)
[2025-05-13] MEDS: traMADol 50 MG TAB PO (15:28)
== END 2025-05-13 15:59 | disposition home or self-care (01) ==
LOC: SUR 10:47
PROVIDERS: Visit Provider Surgery
PROC: (CPT 49650; principal; 2025-05-13 11:15)
DX: K42.9 Umbilical hernia without obstruction or gangrene (principal)
CPT/HCPCS: 49591; C1781; J0666; J0690; J1100; J1171; J2003; J2371; J2405; J2704; J3010; J3475